=== PATIENT | female | born 1980 | race Two or more races ===

== ENCOUNTER 2017-12-22 07:30 | Inpatient (IN) | payer BC ==
[~2017-12-22] VITALS: Ht 162.6 cm; Wt 73.9 kg
[2018-08-25] MEDS ORDERED: NKM (13:02)
--- NOTE | 2018-08-25 23:45 | Pre-op HX & Phy Repo 2 SIG ---
DATE OF ADMISSION: 08/26/2018 CHIEF COMPLAINT: Low abdominal pain, irregular vaginal bleeding, dysmenorrhea, and dyspareunia. HISTORY OF PRESENT ILLNESS: This is a 38-year-old a female, presented to Dr. Rajni Lee with chief complaint of having irregular menstrual period, heavy menstrual period, using . The patient is also complaining of severe dysmenorrhea necessitating to take different medications including nonsteroidal antiinflammatory drugs with poor response. She also complained of dyspareunia. Last menstrual period was 08/20/2018. Usually, period is regular, lasts 4 to 5 days. On pelvic exam, she was diagnosed with lot of uterine fibroid, which was the same finding on her vaginal ultrasound. She was explained all findings in detail and the patient expressed desire to have surgery myomectomy. The patient denies pelvic inflammatory disease. She denies sexually transmitted diseases. The Pap smear was done in October 2017 was normal. She is positive for human papillomavirus help. PREVIOUS MEDICAL HISTORY: She denies medical problems. She denies heart disease, lung disease, liver disease. HOSPITALIZATIONS: None. SURGERIES DONE: at young age. Tobacco, does not smoke. Alcohol, does not drink. ALLERGIES: No known. REVIEW OF SYSTEMS: Noncontributory besides complaints mentioned above. PHYSICAL EXAMINATION: GENERAL: Revealed well-developed, well-nourished white female, in no acute distress. VITAL SIGNS: Stable. HEENT: Head, normocephalic, atraumatic. Eyes, pupils reactive to light and accommodation. Ears, tympanic membranes intact. Mouth, clean, good hygiene. NECK: Supple without thyromegaly, without lymphadenopathy. BREASTS: No masses. Nipples without discharge. HEART: Rate and rhythm regular. S1 and S2. LUNGS: Clear to percussion and auscultation. ABDOMEN: Soft and nontender. Bowel sounds present. Costovertebral angle is nontender. Lower abdominal quadrant feels mass, apparently representing fibroids. EXTREMITIES: No edema. No erythema. PELVIC: Vaginal exam revealed Bartholin, urethral, [place]'s glands within normal limits. Vulva and vagina, no lesions. Cervix closed. Uterus large, irregular. Adnexa, no masses appreciated. LABORATORY DATA: CBC done on 08/22/2018, WBC 7.4, RBC 4.4, hemoglobin 12.1, hematocrit 36.3. test negative. Her blood glucose is 85. Electrolytes normal. Sodium 141, potassium 4.6, chloride 106. Kidney function normal. Calcium 9.4. INR 1.04, PTT 34.8. Her vaginal ultrasound revealed presence of multiple fibroids. The largest is 6.5 or 7.5 centimeters. IMPRESSION: Symptomatic uterine fibroids, menorrhagia, dysmenorrhea, dyspareunia, lower abdominal pain. PLAN: Fraction D and C, hysteroscopy, mini laparotomy, and myomectomy. Kira Painter M.D. DR: LUCIO JOB#: [id number] CC:
[2018-08-26] VITALS (14 sets, daily range): BP systolic 95–122; BP diastolic 53–69
[2018-08-26] MEDS ORDERED: Ropivacaine 5mg/ml Vial 30ml INJ ONE (06:23)
[2018-08-26] MEDS ORDERED: Bupivacaine 0.5% 10ml INJ ONE ×3 (06:24→07:01)
[2018-08-26] MEDS ORDERED: Bacitracin 50000 Units Vial ONE (06:24)
[2018-08-26] MEDS ORDERED: fentaNYL 100 mcg/2 mL IV ONE (06:52)
[2018-08-26] MEDS ORDERED: Propofol 200mg/20ml IV ONE (06:52)
[2018-08-26] MEDS ORDERED: Midazolam 2mg/2ml Inj ONE (06:52)
[2018-08-26] MEDS ORDERED: Succinylcholine 20mg/ml 10ml vial ONE (06:57)
[2018-08-26] MEDS ORDERED: Rocuronium Bromide 50mg/5ml Inj IV ONE (06:57)
[2018-08-26] MEDS ORDERED: cefOXitin 1gm Inj ONE (06:57)
[2018-08-26] MEDS ORDERED: Morphine Sulfate PF 10 ML ONE (06:57)
[2018-08-26] MEDS ORDERED: cefOXitin Sod 2 GM in D5W 110 ML IVPB ONE (07:00)
[2018-08-26] MEDS ORDERED: Neostigmine 1mg/ml 10ml Inj ONE (07:30)
[2018-08-26] MEDS ORDERED: Ketorolac 30mg Inj ONE (07:30)
[2018-08-26] MEDS ORDERED: Glycopyrrolate 0.2mg/ml 1ml Vial ONE (07:30)
[2018-08-26] MEDS ORDERED: LR 1000ml ONE (07:30)
[2018-08-26] MEDS ORDERED: Sterile Water Irrig 1000ml IRRIG ONE (07:30)
[2018-08-26] MEDS ORDERED: NS Irrig 1000ml ONE (07:30)
--- NOTE | 2018-08-26 07:36 | Pre-Procedure Note/Attestation ---
Pre-Procedure Note/Attestation Complete Prior to Procedure Planned Procedure: not applicable Procedure Narrative: Hysteroscopy, dilation and curettage, abdominal myomectomy (mini-lap) Indications for Procedure Pre-Operative Diagnosis: Uterine fibroids Attestation I attest that I discussed the nature of the procedure; its benefits; risks and complications; and alternatives (and the risks and benefits of such alternatives ), prior to the procedure, with the patient (or the patient's legal patient intake representative). I attest that, if there was a reasonable possibility of needing a blood transfusion, the patient (or the patient's legal patient intake representative) was given the [facility] standardized written summary, pursuant to the [place] Blood Safety Act ([place] Health and Safety Code # 1645, as amended). I attest that I re-evaluated the patient just prior to the surgery and that there has been no change in the patient's H&P, except as documented below: None Rajni Lee M.D. Aug 26, 2018 07:36
[2018-08-26] MEDS ORDERED: LR 1000ml 1,000 ML IVLG SCH (08:32)
--- NOTE | 2018-08-26 08:32 | Anethesia Preoperative Eval ---
Anesthesia Pre-op PMH/ROS General Date of Evaluation: Aug 26, 2018 Time of Evaluation: 07:14 Anesthesiologist: Roc ASA Score: ASA 2 Mallampati Score Class I : Soft palate, uvula, fauces, pillars visible Class II: Soft palate, uvula, fauces visible Class III: Soft palate, base of uvula visible Class IV: Only hard plate visible Mallampati Classification: Class II Surgeon: Marissa Diagnosis: Symptomatic uterine fibroids Surgical Procedure: D&C Hysteroscopy, open myomectomy Anesthesia History: none Family History: no anesthesia problems Allergies: Coded Allergies: No Known Allergies (Unverified , 08/24/18) Medications: see eMAR Patient NPO?: Yes NPO Date: Aug 25, 2018 NPO Time: 2100 Past Medical History Cardiovascular: Denies: HTN, CAD, DE, valve dz, arrhythmia, other Pulmonary: Reports: KAREN - improved after T&A; Denies: asthma, COPD, other Gastrointestinal/Genitourinary: Reports: GERD; Denies: CRI, ESRD, other Neurologic/Psychiatric: Denies: dementia, CVA, depression/anxiety, TIA, other Endocrine: Denies: DM, hypothyroidism, steroids, other HEENT: Denies: cataract (L), cataract (R), glaucoma, HO-CHUNK (L), HO-CHUNK (R), other Hematology/Immune: Reports: anemia - mild; Denies: DVT, bleeding disorder, other Musculoskeletal/Integumentary: Denies: OA, RA, DJD, DDD, edema, other PMH Narrative: as above PSxH Narrative: T&A Anesthesia Pre-op Phys. Exam Physician Exam Last Vital Signs Date Time Temp Pulse Resp B/P (MAP) Pulse Ox O2 Delivery O2 Flow Rate FiO2 08/26/18 07:09 Room Air 08/26/18 07:06 98.2 59 18 107/68 (81) 99 Constitutional: NAD Neurologic: CN 2-12 intact Cardiovascular: RRR, no M/R/G Respiratory: CTA Gastrointestinal: S/NT/ND Airway Exam Mallampati Score: Class II MO: full Neck: flexible ROM: full Teeth: intact Dentures: no upper, no lower Anesthesia Pre-op A/P Labs see chart Urine Test Test 08/26/18 06:20 Urine HCG, Qualitative Negative (NEGATIVE) Studies Pre-op Studies: EKG - NSR Risk Assessment & Plan Assessment: ASA 2 Plan: GA with ETT PONV prevention, intrathecal Duramorph for p/op pain control Status Change Before Surgery: No Pre-Antibiotics Drug: Cefoxitin 1gr. Given Within 1 Hr of Incision: Yes Time Given: 07:56 Paras Brian MD Aug 26, 2018 08:32
[2018-08-26] MEDS ORDERED: DiphenhydrAMINE 50mg/ml Inj IVP PRN (08:45)
[2018-08-26] MEDS ORDERED: Midazolam 2mg/2ml Inj IVP PRN (08:45)
[2018-08-26] MEDS ORDERED: Meperidine 50mg/ml Inj(FOR RIGORS ONLY) IV PRN (08:45)
[2018-08-26] MEDS ORDERED: Ketorolac 30mg Inj IV PRN (08:45)
[2018-08-26] MEDS ORDERED: Metoclopramide 10mg/2ml Inj IVP PRN (08:45)
--- NOTE | 2018-08-26 10:46 | Brief Operative Note ---
Immediate Post Operative Note Operative Note Chief Complaint: Uterine fibroids Pre-op Diagnosis: Uterine fibroids Procedure: Hysteroscopy, dilation and curettage, abdominal myomectomy (mini-laparotomy) Post-op Diagnosis: Uterine fibroids Post-op Diagnosis: same as pre-op Findings: consistent w/pre-op dx studies Surgeon: Rajni Lee MD Field Handyman: Kwan Painter mD Anesthesiologist: Dr. Toribio Anesthesia: general - +Duramorph Specimen: yes - Uterine fibroids, Eendometrial curettings Complications: none Condition: stable Fluids: 2000cc Estimated Blood Loss: volume - 150cc Drains: other - Rivera (150cc clear urine out) Packing: None Implant(s) used?: No Rajni Lee M.D. Aug 26, 2018 10:46
--- NOTE | 2018-08-26 10:48 | Operative Note - PDOC ---
Operative Note Operative Note Date of Operation/Procedure: Aug 26, 2018 Chief Complaint: Uterine fibroids Pre-op Diagnosis: Uterine fibroids Procedure: Hysteroscopy, dilation and curettage, abdominal myomectomy (mini-laparotomy) Post-op Diagnosis: Uterine fibroids Post-op Diagnosis: same as pre-op Operative Findings: consistent w/pre-op dx studies Surgeon: Rajni Lee MD Channeling Machine Runner: Kwan Painter mD Anesthesiologist: Dr. Toribio Anesthesia: general - +Duramorph Specimen: yes - Uterine fibroids, Endometrial curettings Complications: none Condition: stable Fluids: 2000cc Estimated Blood Loss: volume - 150cc Drains: other - Rivera (150cc clear urine out) Packing: None Implant(s) used?: No Indications for Procedure Uterine fibroids, pelvic pain Description of Procedure The R/B/A of the procedure were discussed with the patient, and informed consent was obtained. The patient was taken to the operating room with an IV in place. Duramorph was given. She was placed in the dorsal supine position and SCD stockings were placed. General anesthesia was administered without difficulty. The patient was placed in dorsal lithotomy position. She was then prepped and draped in the usual sterile fashion. Rivera catheter was inserted. A time out was called to verify patient and procedure. Antibiotics were given. Attention was turned to the pelvis. [place] speculum was inserted and the anterior lip of the cervix was grasped with a single-toothed tenaculum. The cervix was dilated to accommodate the hysteroscope and hysteroscopy was performed. The uterine riley appeared normal, and bilateral ostia were visualized. Hysteroscopy was discontinued and curettage was performed. Endometrial curettings were sent to pathology. A uterine manipulator was inserted, stabilized, and then all remaining instruments were removed. Attention was then turned to the abdomen. A Pfannenstiel incision was made with the scalpel. The incision was carried down through the subcutaneous tissue to the fascia with the bovie. The fascia was incised at the midline and extended laterally with the bovie. The fascia was from the underlying rectus tissue superiorly and inferiorly using blunt dissection and with the bovie. The peritoneum was identified, entered bluntly and stretched, with care being taken to identify and avoid the bladder. The Dean self-retaining retractor was placed without incident. The uterus was elevated and multiple fibroids were identified. There were 4 total. Three of the fibroids measured approximately 3-4cm and were located at the right fundus, left anterior uterine body, and left lower uterine segment near the bladder. The largest fibroid was on the posterior uterus extending down to the lower uterine segment and measured approximately 7 x 9cm. The first fibroid was grasped and the base was injected with dilute vasopressin. The serosa was incised and the fibroid was dissected away from the uterus using a combination of blunt dissection and electrocautery. Once the fibroid was removed , the myometrium was reapproximated with 0-Vicryl suture and the serosa was reapproximated to obtain hemostasis. This same procedure was repeated with each fibroid. The bladder was dissected away from the uterus when necessary to avoid the bladder. Once myomectomy was complete, the uterine incisions were re- examined and hemostasis was obtained with figure of eight sutures of 0-Vicryl. The uterine manipulator was removed. The endometrial cavity was NOT breached. The abdomen was irrigated and the gutters were wiped with a lap sponge to clear them of all clots and debris. The uterine incisions were again inspected and noted to be hemostatic. Surgicel was placed over the uterus. The Dean retractor was removed. A manual and visual sweep were performed. The anterior peritoneum was closed using Vicryl suture and the rectus muscles were reapproximated using Vicryl suture. Excellent hemostasis was noted. The fascia was closed with running sutures of 0-Vicryl. The subcutaneous layer was irrigated, all bleeding vessels were cauterized, and then closed with running 3- 0 plain gut suture. The skin was closed with 4-0 Monocryl in a subcuticular fashion. Mastisol and steri-strips were applied and the incision was covered with a pressure dressing. All instrument, sponge, and needls counts were correct x 3. The patient was taken to the recovery room in stable condition. Plan for overnight admission. Rajni Lee M.D. Aug 26, 2018 10:47
[2018-08-26] MEDS ORDERED: HYDROcodone/Acetamin 10/325 tab ORAL PRN (11:00)
[2018-08-26] MEDS ORDERED: Hydromorphone 0.5mg/0.5ml inj IVP PRN (11:00)
[2018-08-26] MEDS ORDERED: HYDROcodone/Acetamin 5/325 tab ORAL PRN (11:00)
[2018-08-26] MEDS ORDERED: Milk of Magnesia 30ml Ud ORAL PRN (11:00)
[2018-08-26] MEDS ORDERED: Ketorolac 30mg Inj IM PRN (11:00)
--- NOTE | 2018-08-26 11:58 | Immediate Post-Op Evaluation ---
Immediate Post-Op Evalulation Immediate Post-Op Evalulation Procedure: D&C Hysterectomy, open myomectomy Date of Evaluation: Aug 26, 2018 Time of Evaluation: 11:12 IV Fluids: 2000 Blood Products: none Estimated Blood Loss: 150 Urinary Output: 250 Blood Pressure Systolic: 116 Blood Pressure Diastolic: 72 Pulse Rate: 68 Respiratory Rate: 22 O2 Sat by Pulse Oximetry: 98 Temperature (Fahrenheit): 97.8 Pain Score (1-10): 1 Nausea: No Vomiting: No Complications none Patient Status: reacts, patent, extubated, none Hydration Status: adequate Paras Brian MD Aug 26, 2018 11:58
--- NOTE | 2018-08-26 12:45 | NUR ---
NURSE NOTES: Patient arrived to unit at 1230 via bed. Received report from Filomena MICHAELS. Patient is awake alert and oriented on arrival, no s/s acute distress noted, patient is talkative. Patient reporting no pain at this time. Abdominal dressing assessed c/d/i. SCD's in place. Left hand IV patent and asymptomatic. VS assessed and stable. Side rails upx3, bed low and locked, call light in reach. Will continue to monitor.
[2018-08-26] MEDS: LR 1000ml 1,000 ML IV SCH ×2 (13:03→21:44)
--- NOTE | 2018-08-26 13:03 | 48 Hour Post Anesthesia Eval ---
Post Anesthesia Evaluation Procedure: D&C Hysterectomy, open myomectomy Date of Evaluation: Aug 26, 2018 Time of Evaluation: 14:10 Blood Pressure Systolic: 122 0: 89 Pulse Rate: 76 Respiratory Rate: 18 Temperature (Fahrenheit): 97.8 O2 Sat by Pulse Oximetry: 96 Nausea: No Vomiting: No Pain Intensity: 3 Hydration Status: adequate Cardiopulmonary Status: Stable Mental Status/LOC: patient returned to baseline Follow-up Care/Observations: 0 Post-Anesthesia Complications: 0 Follow-up care needed: N/A Carlos Espinal MD Aug 26, 2018 13:02
[2018-08-26] MEDS: Docusate 100mg cap ORAL SCH (18:18)
--- NOTE | 2018-08-26 19:00 | NUR ---
NURSE NOTES: Patient had episode of emesis x1 following advancement to full liquid diet. Diet not advanced to regular due to emesis, patient remains on IVF due to not yet tolerating 500mL of PO intake. Will endorse to nightshift.
--- NOTE | 2018-08-26 19:13 | NUR ---
NURSE NOTES: Patient voided approximately 100mL of clear, yellow urine with some blood noted. Some vaginal bleeding noted, changed jayne pad x3, jayne pads not saturated. No clots noted.
--- NOTE | 2018-08-26 19:30 | NUR ---
HAND-OFF: Report given to Noah MICHAELS. Patient stable.
--- NOTE | 2018-08-26 19:45 | NUR ---
NURSE NOTES: Received patient in bed. Noted another episode of emesis x1 by time of room visit. Explained time of next dose of Zofran. Patient verbalized feeling better and can wait. On RA, no SOB, no acute distress. Wound dressing on abdomen dry and clean. L hand IV intact , patent running LR 125ml/hr. Bed in lowest position, locked, alarms on. Call light in reach.
--- NOTE | 2018-08-26 22:40 | NUR ---
NURSE NOTES: Zofran given at 2140. No episode of N/V noted. Patient verbalized feeling better. Will stay with IVF d/t not yet tolerating 500mL of PO intake.
[2018-08-27] VITALS: BP 90/52
[2018-08-27 01:00] VITALS: BP 102/64
--- NOTE | 2018-08-27 01:20 | NUR ---
NURSE NOTES: Patient noted with fever of 100.5F at 0000. Tylenol 650mg given, cooling measures provided. Rechecked temp of 100.7F at 0100, denies pain, dry surgical dressing on abdomen, asymptomatic. Notified Dr Lee and received orders for urine culture and blood culture only if temp goes over 101.F Will continue monitor closely.
--- NOTE | 2018-08-27 02:00 | NUR ---
Temp dropped to 99.8, asymptomatic. Will cont monitoring closely.
[2018-08-27 04:00] VITALS: BP 96/66
[2018-08-27] MEDS: LR 1000ml 1,000 ML IV SCH ×2 (04:48→12:33)
--- NOTE | 2018-08-27 07:30 | NUR ---
NURSE NOTES: Patient is in bed awake and able to verbalize needs. Patient is stable and has no s/s acute distress. Patient denies pain at this time. Patient's surgical site is clean, dry, and intact. Patient is comfortable in bed with call light within reach. All needs met at this time. Will continue to monitor.
--- NOTE | 2018-08-27 07:42 | NUR ---
HAND-OFF: Report given to Travis MICHAELS.
[2018-08-27 08:00] VITALS: BP 99/68
[2018-08-27] MEDS: Docusate 100mg cap ORAL SCH (08:10)
[2018-08-27 08:19] LABS: BASOPHILS % (AUTO) 0.8 % (0.0-2.0); EOSINOPHILS % (AUTO) 1.6 % (0.0-3.0); HEMATOCRIT 33.6 % (37.0-47.0); HEMOGLOBIN 10.8 G/DL (12.0-16.0); MEAN CORPUSCULAR VOLUME 84 FL (80-99); MONOCYTES % (AUTO) 6.7 % (1.0-10.0); NEUTROPHILS % (AUTO) 66.9 % (45.0-75.0); PLATELET COUNT 221 K/UL (150-450); RED CELL DISTRIBUTION WIDTH 12.6 % (11.6-14.8); WHITE BLOOD COUNT 9.7 K/UL (4.8-10.8)
[2018-08-27 12:00] VITALS: BP 92/61
--- NOTE | 2018-08-27 13:55 | General Progress Note ---
Progress Note Progress Note GYNECOLOGY PROGRESS NOTE Patient doing well. Some SIERRA, awaiting effect of Tylenol. No acute issues. Low grade fever overnight, resolved with Tylenol. Has been afebrile since. She is ambulating, voiding, passing flatus and denies nausea vomiting today. Vitals reviewed, WNL Exam: Gen: NAD CV: No tachycardia Pulm: No crackles or wheezes Abd: Soft, non-distended, appropriately tender. Incision c/d/i Ext: No calf TTP Patient is a 38yo here s/p HSC, D&C, abdominal myomectomy, POD#1 - Meeting milestones, stable for discharge. - Rx for [place] given prior to surgery, patient will take OTC Advil and Colace - Follow up with me in 2 weeks - Call for fever, worsening pain, nausea/vomiting, redness around incision site , or any other concern Signed: MD Rosa Drummond Carla M.D. Aug 27, 2018 13:55
--- NOTE | 2018-08-27 14:07 | NUR ---
CASE MANAGEMENT: REVIEW 38/F DIRECT ADMIT FROM HOME CC: LOW ABDOMINAL PAIN, IRREGULAR VAGINAL BLEEDING, DYSMENORRHEA, AND DYSPAREUNIA SI: UTERINE FIBROIDS D&C HYSTERECTOMY, OPEN MYOMECTOMY 08/26 T 98.2 HR 59 RR 18 BP 107/68 SAT 100% SIMPLE MASK 6.0 UA: HCG NEG IS: PROPOFOL IV X1 FENTANYL IV X1 VERSED IV X1 LACTATED RINGER'S IV X1 DEMEROL IV X1 CEFOXITIN IV X1 INTERQUAL CRITERIA MET: PATIENT ADMITTED TO MED/SURG UNIT 08/26/2018 DCP: PATIENT IS FROM HOME
--- NOTE | 2018-08-27 15:00 | NUR ---
NURSE NOTES: Patient discharged home as ordered. Patient is stable, no s/s acute distress. Patient's skin is clean, dry, and intact. IV removed, no complications noted. Patient was given thorough discharge instructions, verbalized understanding. All belongings with partner. Patient denies pain or discomfort upon discharge. All needs met at this time.
--- NOTE | 2018-08-29 07:17 | Discharge Summary ---
Discharge Summary Hospital Course Date of Admission Aug 26, 2018 at 06:05 Date of Discharge Aug 27, 2018 at 15:20 Admitting Diagnosis symptomatic uterine fibroids Reason for Hospitalization: surgery HPI Rosa Kaba is a 38 year old female who was admitted on Aug 26, 2018 at 06:05 for Uterine Fibroids Procedures s/p 08/26/[address] Lee Hysteroscopy, dilation and curettage, abdominal myomectomy (mini-laparotomy) Hospital Course s/p surgery perioperative antibiotic course of recovery uneventful pain management initially IVF started on diet slowly as tolerated a/emetic on board prn incision clean bowel regimen instituted pain controlled, incision clean, intact, ambulated, voided freely, tolerated diet stable for dc dc instructions provided fup with surgeon in 2 wks as outpatient FINAL DIAGNOSES symptomatic uterine fibroids menorrhagia dysmenorrhea, dyspareunia lower abdominal pain. s/p hysteroscopy, dilation and curettage, abdominal myomectomy (mini-laparotomy ) 08/26 Discharge Condition Upon Discharge: stable Discharge Disposition Patient was discharged to Home (01) Discharge Instructions Discharge Instructions Special Instructions I have been assigned to complete a D/C Summary on this account. I was not involved in the patient management Jaja Vinson NP Aug 29, 2018 07:17
--- NOTE | 2018-08-29 11:42 | Discharge Summary ---
Discharge Summary Hospital Course Date of Admission Aug 26, 2018 at 06:05 Date of Discharge Aug 27, 2018 at 15:20 Admitting Diagnosis Status post abdominal myomectomy Reason for Hospitalization: Status post abdominal myomectomy (laparotomy) REBECCA Kaba is a 38 year old female who was admitted on Aug 26, 2018 at 06:05 for Uterine Fibroids s/p abdominal myomectomy. Her surgery was uncomplicated and was admitted for overnight observation for pain control and to await post- operative milestones. Consultations None Procedures Hysteroscopy, dilation and curettage, abdominal myomectomy (mini-laparotomy) Hospital Course The patient underwent and uncomplicated procedure and on post-op day #1 was meeting all milestones. She was discharged home in stable condition with return precautions and follow up scheduled for 2w post-op. Discharge Condition Upon Discharge: stable Discharge Disposition Patient was discharged to Home (01) Discharge Diagnoses: (1) Status post myomectomy Rajni Lee M.D. Aug 29, 2018 11:42
== END 2018-08-27 15:20 | disposition home or self-care (01) | DRG 743 ==
LOC: SDSOVERFLO 08-26 06:05 → 3E 08-26 12:37
PROC: 0UB90ZZ Excision of Uterus, Open Approach (ICD-10-PCS; principal; 2018-08-26 07:30)
PROC: 0UDB8ZZ Extraction of Endometrium, Via Natural or Artificial Opening Endoscopic (ICD-10-PCS; principal; 2018-08-26 07:30)
DX: D25.9 Leiomyoma of uterus, unspecified (principal); N94.6 Dysmenorrhea, unspecified
CPT/HCPCS: 36415; 81025; 85025; 86850; 86900; 86901; 87081; 94003; 94150; 96360; 96361; 96374; G0378; J2250; J2405; J2710